=== PATIENT | female | born 2000 | race Two or more races ===

== ENCOUNTER 2019-10-06 10:17 | Emergency (ER) | payer MEDICAID ==
[2019-10-06] MEDS ORDERED: IBUPROFEN 800 MG TABLET PO STA (12:42)
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
[2019-10-06 13:54] VITALS: BP 117/70
== END 2019-10-06 13:54 | disposition home or self-care (01) ==
LOC: ED 10:17
DX: S60.212A Contusion of left wrist, initial encounter (principal); V89.2XXA Person injured in unspecified motor-vehicle accident, traffic, initial encounter
CPT/HCPCS: 73110; 99283; 99284; A9270